=== PATIENT | female | born 1955 | race Asian ===

== ENCOUNTER 2018-03-02 06:16 | Inpatient (IN) | payer OTHER, BC ==
[2018-03-02] MEDS ORDERED: METOCLOPRAMIDE 10 MG INJ IV (07:30)
[2018-03-02] MEDS ORDERED: ALBUTEROL 0.083% (NEB) 2.5 MG/3 ML AMP HHN (07:30)
[2018-03-02] MEDS ORDERED: HYDROmorphONE 0.5 MG/0.5 ML SYG IV (07:30)
[2018-03-02] MEDS ORDERED: NALOXONE (0.4 MG/ML) INJ IV (07:30)
[2018-03-02] MEDS ORDERED: DIPHENHYDRAMINE 50 MG INJ IV ×2 (07:30)
[2018-03-02] MEDS ORDERED: MEPERIDINE 25 MG INJ IV (07:30)
[2018-03-02] MEDS ORDERED: FENTAnyl 50 MCG/ML VIAL IV ×2 (07:30)
[2018-03-02] MEDS ORDERED: HYDROmorphONE 1 MG/5 ML IV SYRINGE IV ×3 (07:30)
[2018-03-02] MEDS ORDERED: ONDANSETRON 4 MG INJ IV ×2 (07:30)
[2018-03-02] MEDS ORDERED: MIDAZOLAM 1 MG/ML 2 ML INJ (07:45)
[2018-03-02] MEDS ORDERED: ROPIVACAINE 0.5 % 30 ML VIAL (07:46)
[2018-03-02] MEDS ORDERED: PHENYLephrine (100 MCG/ML) 5ML SYG (07:51)
[2018-03-02] MEDS ORDERED: ROCURONIUM 50 MG INJ (07:55)
[2018-03-02] MEDS ORDERED: PROPOFOL 20 ML (07:55)
[2018-03-02] MEDS ORDERED: SUGAMMADEX SODIUM 200 MG/2 ML VIAL IV (07:55)
[2018-03-02] MEDS ORDERED: LIDOCAINE 100 MG SYRINGE (07:55)
[2018-03-02] MEDS ORDERED: CEFAZOLIN 1 GM INJ (07:55)
[2018-03-02] MEDS ORDERED: SUCCINYLCHOLINE CHLORIDE 100 MG/5 ML SYG IV (07:55)
[2018-03-02] MEDS ORDERED: FENTAnyl 50 MCG/ML VIAL (07:56)
[2018-03-02] MEDS ORDERED: morphine SULFATE/PF (10 MG/10 ML) INJ (07:57)
[2018-03-02] MEDS: LACTATED RINGER'S 1,000 ML IV (14:17)
[2018-03-02] MEDS ORDERED: DEXTROSE 50% 50 ML SYRINGE IV ×2 (15:00)
[2018-03-02] MEDS ORDERED: GLUCOSE GEL 15 GRAM TUBE BUCCAL (15:00)
[2018-03-02] MEDS ORDERED: GLUCAGON 1 MG INJ IM (15:00)
[2018-03-02] MEDS ORDERED: GLUCOSE GEL 15 GRAM TUBE PO ×2 (15:00)
[2018-03-02] MEDS: DEXTROSE 5%-0.45% NACL 1,000 ML IV (15:06)
[2018-03-02] MEDS ORDERED: INSULIN ASPART [NOVOLOG] 3 ML PEN SC (17:00)
[2018-03-02] MEDS: Insulin NOVOLOG SS MILD Algorithm (NPO/TPN/ENTERAL FEEDS) SC ×2 (17:27→21:16)
[2018-03-02] MEDS: ATORVASTATIN 20 MG TAB PO (20:53)
[2018-03-03] MEDS: Insulin NOVOLOG SS MILD Algorithm (NPO/TPN/ENTERAL FEEDS) SC ×2 (01:00→05:00)
[2018-03-03] MEDS: HYDROmorphONE 0.5 MG/0.5 ML SYG IV (01:33)
[2018-03-03] MEDS: DEXTROSE 5%-0.45% NACL 1,000 ML IV ×2 (01:35→06:50)
[2018-03-03] MEDS: LEVOTHYROXINE 50 MCG TAB PO (05:37)
[2018-03-03] MEDS: BISACODYL 10 MG SUPP PR ×2 (05:37→17:02)
[2018-03-03] MEDS: MAGNESIUM HYDROXIDE 30ML CUP PO ×2 (05:37→17:02)
[2018-03-03 05:42] LABS: ADD MAN DIFF? NO
[2018-03-03 05:50] LABS: WHITE BLOOD COUNT 11.6 10^3/ul (4.8-10.8)
[2018-03-03 05:50] LABS: BASOPHILS % 0.3 % (0.0-2.0); EOSINOPHILS % 0.2 % (0.0-7.0); HEMATOCRIT 33.3 % (37.0-47.0); HEMOGLOBIN 11.4 g/dl (12.0-16.0); LYMPHOCYTES # 1.9 10^3/ul (0.8-2.9); LYMPHOCYTES % 15.9 % (15.0-51.0); MEAN CORPUSCULAR HEMOGLOBIN 32.5 pg (29.0-33.0); MEAN CORPUSCULAR HGB CONC 34.2 g/dl (32.0-37.0); MEAN CORPUSCULAR VOLUME 94.9 fl (82.0-101.0); MEAN PLATELET VOLUME 10.7 fl (7.4-10.4); MONOCYTE # 1.3 10^3/ul (0.3-0.9); MONOCYTES % 11.3 % (0.0-11.0); NEUTROPHIL # 8.4 10^3/ul (1.6-7.5); PLATELET COUNT 210 10^3/UL (140-415); RED BLOOD COUNT 3.51 10^6/ul (4.20-5.40); RED CELL DISTRIBUTION WIDTH 12.3 % (11.5-14.5)
[2018-03-03 06:30] LABS: ALANINE AMINOTRANSFERASE 35 IU/L (13-69); ALBUMIN 3.9 g/dl (3.3-4.9); ALBUMIN/GLOBULIN RATIO 1.34; ALKALINE PHOSPHATASE 47 IU/L (42-121); ANION GAP 11 (5-13); ASPARTATE AMINO TRANSFERASE 28 IU/L (15-46); BILIRUBIN,INDIRECT 1.3 mg/dl (0-1.1); BILIRUBIN,TOTAL 1.3 mg/dl (0.2-1.3); BLOOD UREA NITROGEN 8 mg/dl (7-20); CALCIUM 8.5 mg/dl (8.4-10.2); CARBON DIOXIDE 22 mmol/L (21-31); CHLORIDE 107 mmol/L (97-110); CREATININE 0.51 mg/dl (0.44-1.00); Estimated GFR > 60 mL/min (>60); GLUCOSE 133 mg/dl (70-220); POTASSIUM 3.7 mmol/L (3.5-5.1); SODIUM 140 mmol/L (135-144); TOTAL PROTEIN 6.8 g/dl (6.1-8.1)
[2018-03-03] MEDS: INSULIN ASPART [NOVOLOG] 3 ML PEN SC ×4 (08:43→21:00)
[2018-03-03] MEDS: ACETAMINOPHEN 325 MG TAB PO ×2 (08:45→21:00)
[2018-03-03] MEDS: LOSARTAN 50 MG TAB PO (08:46)
[2018-03-03] MEDS: metFORMIN 500 MG TAB PO ×2 (08:46→17:35)
[2018-03-03] MEDS ORDERED: HYDROCODONE/APAP (5/325) TAB PO ×2 (09:00)
[2018-03-03] MEDS: SOD CHLORIDE 0.9% 1,000 ML IV (10:37)
[2018-03-03] MEDS ORDERED: INSULIN ASPART [NOVOLOG] 3 ML PEN SC (11:30)
[2018-03-03] MEDS: ACCU-CHEK XX ×3 (11:30→21:00)
[2018-03-03] MEDS: ATORVASTATIN 20 MG TAB PO (21:00)
[2018-03-04] MEDS: ACETAMINOPHEN 325 MG TAB PO ×4 (01:06→15:23)
[2018-03-04] MEDS: LEVOTHYROXINE 50 MCG TAB PO (06:10)
[2018-03-04] MEDS: ACCU-CHEK XX ×3 (07:30→17:35)
[2018-03-04] MEDS: metFORMIN 500 MG TAB PO ×2 (08:29→17:56)
[2018-03-04] MEDS: LOSARTAN 50 MG TAB PO (08:29)
[2018-03-04] MEDS: INSULIN ASPART [NOVOLOG] 3 ML PEN SC ×3 (08:30→17:59)
[2018-03-04 08:54] LABS: ADD MAN DIFF? NO
[2018-03-04 09:02] LABS: BASOPHILS % 0.2 % (0.0-2.0); EOSINOPHILS # 0.1 10^3/ul (0.0-0.5); EOSINOPHILS % 0.4 % (0.0-7.0); HEMATOCRIT 30.9 % (37.0-47.0); HEMOGLOBIN 10.4 g/dl (12.0-16.0); LYMPHOCYTES # 1.8 10^3/ul (0.8-2.9); LYMPHOCYTES % 12.7 % (15.0-51.0); MEAN CORPUSCULAR HGB CONC 33.7 g/dl (32.0-37.0); MEAN CORPUSCULAR VOLUME 95.1 fl (82.0-101.0); MEAN PLATELET VOLUME 10.6 fl (7.4-10.4); MONOCYTES % 7.4 % (0.0-11.0); NEUTROPHILS % 78.7 % (39.0-77.0); PLATELET COUNT 230 10^3/UL (140-415); RED BLOOD COUNT 3.25 10^6/ul (4.20-5.40); RED CELL DISTRIBUTION WIDTH 12.1 % (11.5-14.5)
== END 2018-03-04 19:04 | disposition home or self-care (01) | DRG 743 ==
LOC: REC 06:16 → PP2 10:15
PROVIDERS: Obstetrics & Gynecology
PROC: 0USG0ZZ Reposition Vagina, Open Approach (ICD-10-PCS; principal; 2018-03-02 07:26)
PROC: 0UT20ZZ Resection of Bilateral Ovaries, Open Approach (ICD-10-PCS; 2018-03-02 07:26)
PROC: 0UT70ZZ Resection of Bilateral Fallopian Tubes, Open Approach (ICD-10-PCS; 2018-03-02 07:26)
PROC: 0UT90ZZ Resection of Uterus, Open Approach (ICD-10-PCS; 2018-03-02 07:26)
PROC: 0TNB0ZZ Release Bladder, Open Approach (ICD-10-PCS; 2018-03-02 07:26)
PROC: 0DNU0ZZ Release Omentum, Open Approach (ICD-10-PCS; 2018-03-02 07:26)
DX: N81.2 Incomplete uterovaginal prolapse (principal); N81.10 Cystocele, unspecified; G89.29 Other chronic pain; R10.2 Pelvic and perineal pain; M54.9 Dorsalgia, unspecified
CPT/HCPCS: 80053; 82962; 85025; 86850; 86900; 86901; 87086; 88305